=== PATIENT | male | born 1985 | race Caucasian/White ===

== ENCOUNTER 2022-12-12 16:11 | Emergency (ER) | payer MEDICAID ==
[2022-12-12] MEDS ORDERED: AMPICILLIN/SULBACTAM 3 GM in SODIUM CHLORIDE 0.9% MINIBAG 100 ML IV STA (16:27)
--- NOTE | 2022-12-12 16:29 | ED Physician Documentation ---
History of Present Illness - Stated complaint Stated Complaint: SWOLLEN EYES - Chief complaint Chief Complaint: Heent - History obtained from History obtained from: Patient - Additonal information Additional information: 37-year-old gentleman with plaque psoriasis developed facial swelling on the right and fevers and vomiting 5 days ago. The fevers have gone away but he has persistent swelling especially around the right eye. His vision is normal. PD PAST MEDICAL HISTORY - Present Medications Home Medications: Ambulatory Orders Medication Instructions Recorded Confirmed Amox/Clav 875/125 [Augmentin] 1 each PO Q12H #20 tablet 12/12/22 - Allergies Allergies/Adverse Reactions: Allergies Allergy/AdvReac Type Severity Reaction Status Date / Time No Known Drug Allergies Allergy Verified 12/12/22 16:15 PD ED PE NORMAL - Vitals Vital signs reviewed: Yes - General General: Alert and oriented X 3, No acute distress - HEENT HEENT: PERRL, EOMI, Other (Plaque psoriasis on the scalp. He has periorbital cellulitis on the right with some purulence through the tear duct. Lower face, oropharynx are normal. No pain with extraocular movements.) - Neuro Neuro: Alert and oriented X 3, Normal speech Results - Vitals Vitals: Vital Signs - 24 hr 12/12/22 16:15 Temperature 36.5 C Heart Rate 90 Respiratory 16 Rate Blood Pressure 149/81 H O2 Saturation 100 Oxygen O2 Source Room air - Labs Labs: Laboratory Tests 12/12/22 12/12/22 16:34 16:34 WBC 2.6 L RBC 4.90 Hgb 14.4 Hct 44.2 MCV 90.2 MCH 29.4 MCHC 32.6 RDW 13.1 Plt Count 228 MPV 9.1 Neut # (Auto) Not Reportable Lymph # (Auto) Not Reportable [place] # (Auto) Not Reportable Eos # (Auto) Not Reportable Baso # (Auto) Not Reportable Absolute Nucleated RBC Not Reportable Total Counted 100 Band Neuts % (Manual) 0 Abnorm Lymph % (Manual) 0 Nucleated RBC % Not Reportable Neutrophils # (Manual) 0.6 L Lymphocytes # (Manual) 1.3 L Monocytes # (Manual) 0.6 Eosinophils # (Manual) 0.1 Basophils # (Manual) 0.0 Differential Comment MANUAL DIFFERENTIAL Platelet Estimate NORMAL (130-450,000) Platelet Morphology NORMAL APPEARANCE RBC Morph Micro Appear NORMAL APPEARANCE Sodium 138 Potassium 3.7 Chloride 100 L Carbon Dioxide 28 Anion Gap 10.0 BUN 9 Creatinine 0.9 Estimated GFR (MDRD) 94 Glucose 109 H Calcium 8.9 - Rads (name of study) CT of the face with IV contrast Relevant Findings:: Final report received, EMP independent interpretation of test PD Medical Decision Making - ED course ED course: 37-year-old gentleman with periorbital cellulitis. CT ruling out orbital cellulitis although that was not clinically highly suspected at the time of initial evaluation. Also sinusitis on the CT. Given IV Unasyn here. Discussed abnormal low white count and need for follow-up for that. Departure - Departure Disposition: Home, Self Care Clinical Impression: Facial cellulitis, Sinusitis Condition: Good Record reviewed to determine appropriate education?: Yes Instructions: ED Cellulitis Facial, ED Sinusitis Abx Tx Prescriptions: Amox/Clav 875/125 [Augmentin] 1 each PO Q12H #20 tablet Comments: CT scan showing sinusitis and also the radiologist did notice a cavity so follow-up with a dentist. As discussed, your blood work was notable for a total white blood cell count of 2.6 with low neutrophils and lymphocytes. This might just be related to the stress of the infection, recommend you follow-up with your doctor in a week and consider having them recheck your labs. If they are persistently abnormal with consideration for heme-onc referral. Return if worse.
[2022-12-12 16:38] LABS: BASOPHILS % (AUTO) 0.8 %; EOSINOPHILS % (AUTO) 1.1 %; HCT - HEMATOCRIT 44.2 % (42.0-52.0); HGB - HEMOGLOBIN 14.4 g/dL (14.0-18.0); LYMPHOCYTES % (AUTO) 51.7 %; MEAN CORPUSCULAR HEMOGLOBIN 29.4 pg (27.0-31.0); MEAN CORPUSCULAR HGB CONC 32.6 g/dL (32.0-36.0); MEAN CORPUSCULAR VOLUME 90.2 fL (80.0-94.0); MEAN PLATELET VOLUME 9.1 fL (7.4-11.4); MONOCYTES % (AUTO) 19.4 %; NEUTROPHILS % (AUTO) 24.7 %; PLT - PLATELET COUNT 228 10^3/uL (130-450); RED CELL DISTRIBUTION WIDTH 13.1 % (12.0-15.0); WHITE BLOOD COUNT 2.6 x10^3/uL (4.8-10.8)
[2022-12-12 16:40] LABS: ABNORMAL LYMPHS % (MANUAL) 0 %; BAND NEUTROPHILS % (MANUAL) 0 %
[2022-12-12 16:46] LABS: CALCIUM 8.9 mg/dL (8.5-10.3); CREATININE 0.9 mg/dL (0.6-1.2); POTASSIUM 3.7 mmol/L (3.5-5.0)
[2022-12-12 17:03] LABS: DIFFERENTIAL COMMENT MANUAL DIFFERENTIAL; EOSINOPHILS # (MANUAL) 0.1 10^3/uL (0-0.7); LYMPHOCYTES # (MANUAL) 1.3 10^3/uL (1.5-3.5); LYMPHOCYTES % (MANUAL) 51 %; MONOCYTES # (MANUAL) 0.6 10^3/uL (0.0-1.0); NEUTROPHILS # (MANUAL) 0.6 10^3/uL (1.5-6.6); PLATELET ESTIMATE, MANUAL NORMAL (130-450,000) (NORMAL); PLATELET MORPHOLOGY NORMAL APPEARANCE (NORMAL); RBC MORPHOLOGY (MULTIPLE) NORMAL APPEARANCE (NORMAL)
[2022-12-12] MEDS ORDERED: iohexoL-300 100 ML VIAL ONE (17:53)
--- NOTE | 2022-12-12 18:44 | CT Report ---
PROCEDURE: MAXILLOFACIAL W INDICATIONS: IV contrast, R facial infection CONTRAST: 100ml omni 300 TECHNIQUE: After the administration of intravenous contrast, 3.0 mm axial sections acquired from the mid-neck to the frontal sinuses, with coronal reformatting. For radiation dose reduction, the following was use d: automated exposure control, adjustment of mA and/or kV according to patient size. COMPARISON: None. FINDINGS: Image quality: Excellent. Soft tissues: No edema, masses, or fluid collections. No enlarged lymph nodes. Vascular: Visualized vascular structures appear patent throughout. Bony vascular foramina and canal s appear normal. Bones: Facial bones appear intact, without fractures, erosions, or destruction. Visualized portions of the skull base and auditory canals also appear normal. Right mandibular third molar dental caries suspected, (). Sinuses: Partial opacification of the right maxillary sinus. Mucosal thickening or mucous retention c yst in the left maxillary sinus. Opacification of a few of the right ethmoid air cells. Mucosal thick ening in the right frontal sinus. The opacification of a few mastoid air cells bilaterally. IMPRESSION: No abscess demonstrated. Sinusitis. Right mandibular third molar dental cavity. Reviewed by: Aditya Blackwell MD on 12/12/2022 6:43 PM PDT Approved by: Aditya Blackwell MD on 12/12/2022 6:43 PM PDT Station ID: [id number]
[2022-12-12] MEDS ORDERED: iohexoL-300 100 ML VIAL IVP ONE (19:00)
[2022-12-12 19:08] VITALS: BP 110/77
== END 2022-12-12 19:07 | disposition home or self-care (01) ==
LOC: ED 16:11
DX: L03.213 Periorbital cellulitis (principal); J32.4 Chronic pansinusitis; K02.9 Dental caries, unspecified; D70.9 Neutropenia, unspecified
CPT/HCPCS: 36415; 70487; 80048; 85025; 96365; 99283; 99284; Q9967

== ENCOUNTER 2023-07-20 10:15 | Outpatient (CLI) | payer MEDICAID | END 2023-07-20 10:30 | disposition home or self-care (01) | LOC: LAB.N 10:15 | PROVIDERS: ATTEND Physician Assistant | DX: L02.411 Cutaneous abscess of right axilla (principal) | CPT/HCPCS: 87070; 87181; 87205 ==